=== PATIENT | female | born 1955 | race Caucasian/White ===

== ENCOUNTER → 2022-03-17 | Outpatient (CLI) | payer MEDICARE | LOC: RAD 15:01 | PROVIDERS: ATTEND Internal Medicine | DX: R22.1 Localized swelling, mass and lump, neck (principal) | CPT/HCPCS: 71046 ==

== ENCOUNTER → 2022-06-26 | Outpatient (CLI) | payer MEDICARE, OTHER | LOC: RAD 14:05 | PROVIDERS: ATTEND Internal Medicine | DX: Z01.818 Encounter for other preprocedural examination (principal) | CPT/HCPCS: 71046 ==